=== PATIENT | male | born 1935 | race Caucasian/White ===

== ENCOUNTER 2023-04-23 21:03 | Inpatient (IN) | payer MEDICARE, OTHER ==
[~2023-04-23] VITALS: Ht 175.3 cm; Wt 70.9 kg
[~2023-04-23 21:03] MED LIST: NO HOME MEDS; tamsulosin capsule PO
[2023-04-23 22:24] LABS: HEMOGLOBIN 12.2 g/dl (14.0-17.9); MEAN PLATELET VOLUME 6.5 FL (7.4-10.4)
[2023-04-23 22:25] LABS: HEMATOCRIT 35.9 % (42.0-52.0); MEAN CORPUSCULAR HEMOGLOBIN 31.8 PG (27.0-31.0); MEAN CORPUSCULAR HGB CONC 33.8 g/dL (33.0-36.5); MEAN CORPUSCULAR VOLUME 93.9 FL (78-98); PLATELET COUNT 364 X10'3 (140-440); RED BLOOD COUNT 3.82 X10'6 (4.70-6.10); RED CELL DISTRIBUTION WIDTH 14.6 % (11.5-14.5); WHITE BLOOD COUNT 15.3 X10'3 (4.5-11.0)
[2023-04-23 22:31] LABS: ALANINE AMINOTRANSFERASE 27 U/L (12-78); ALBUMIN 2.6 G/DL (3.4-5.0); ALBUMIN/GLOBULIN RATIO 0.6 (1.1-1.5); ALKALINE PHOSPHATASE 168 IU/L (46-116); ANION GAP 8 (8-16); ASPARTATE AMINO TRANSFERASE 25 U/L (10-37); BILIRUBIN,TOTAL 1.1 MG/DL (0.1-1.0); BLOOD UREA NITROGEN 24 MG/DL (7-18); BUN/CREATININE RATIO 18.5 (10.0-20.0); CALCIUM 9.1 MG/DL (8.5-10.1); CHLORIDE 98 MMOL/L (99-107); GLUCOSE 101 MG/DL (70-104); POTASSIUM 3.8 MMOL/L (3.5-5.1); SODIUM 133 MMOL/L (135-145); TOTAL PROTEIN 6.7 G/DL (6.4-8.2); eCRCL 40 ML/MIN; eGFR 52 ML/MIN
[2023-04-23] MEDS ORDERED: normal saline 1000ml 1,000 ML IV ONE (23:05)
[2023-04-23 23:14] LABS: PLATELET ESTIMATE NORMAL; TOTAL CELLS COUNTED 100
[2023-04-23] MEDS ORDERED: CefTRIAXone/D5W-Rocephin 1gm 50 ML IV ONE (23:20)
[2023-04-23] MEDS ORDERED: iohexol 300mg/ml 100ml inj. ONE (23:23)
[2023-04-23 23:41] LABS: APTT 25 SECONDS (22-32); PROTHROMBIN TIME 11.1 SECONDS (9.0-12.0)
[2023-04-24] MEDS ORDERED: normal saline 1000ml 1,000 ML IV ONE (01:10)
[2023-04-24 01:55] LABS: BILIRUBIN,URINE NEGATIVE (Neg); CLARITY,URINE TURBID (Clear); COLOR,URINE YELLOW (Yellow); GLUCOSE, URINE NEGATIVE (Neg); KETONES,URINE NEGATIVE (Neg); LEUKOCYTE ESTERASE ,URINE LARGE (Neg); NITRITES, URINE POSITIVE (Neg); OCCULT BLOOD,URINE MODERATE (Neg); PROTEIN,URINE 30 mg/dl (Neg); UROBILINOGEN,URINE 0.2 E.U/dL (0.2-1.0)
[2023-04-24] MEDS: normal saline 1000ml 1,000 ML IV SCH ×2 (01:55→15:13)
[2023-04-24] MEDS ORDERED: potassium Cl 20 mEq SR tablet PO PRN ×2 (01:55)
[2023-04-24] MEDS ORDERED: potassium Cl 40MEQ/1/2NS 520ml 520 ML IV PRN (01:55)
[2023-04-24] MEDS ORDERED: magnesium Cl slow-release 64mg tablet PO PRN (01:55)
[2023-04-24] MEDS ORDERED: acetaminophen 325mg tablet PO PRN (01:55)
[2023-04-24] MEDS ORDERED: magnesium 4gm in 100ml NS 100 ML IV PRN (01:55)
[2023-04-24] MEDS ORDERED: ondansetron/PF 4mg/2ml inj IV PRN (01:55)
[2023-04-24] MEDS ORDERED: magnesium 2GM in 50ml NS 50 ML IV PRN (01:55)
[2023-04-24] MEDS: tamsulosin 0.4mg capsule PO SCH ×2 (02:00→21:07)
[2023-04-24 02:10] LABS: UA COLLECTION TYPE STRAIGHT CATH
[2023-04-24 02:15] LABS: BACTERIA,URINE 1+ /HPF (Neg); MUCUS STRANDS NONE SEEN /LPF (Neg); RBC,URINE 0-2 /HPF (0-2); SQUAMOUS EPITHELIAL CELL,UR NONE SEEN /LPF (FEW); WBC,URINE TNTC /HPF (0-4)
[2023-04-24] MEDS: CefTRIAXone 2gm/D5W 50ml BAG 50 ML IV SCH (08:50)
[2023-04-24] MEDS: heparin, porcine 5000 units/ml vial SQ SCH ×2 (08:55→21:07)
[2023-04-24] MEDS: acetaminophen 325mg tablet PO PRN ×2 (10:45→21:22)
[2023-04-24] MEDS ORDERED: FLO0.4C PO (11:08)
[2023-04-24] MEDS ORDERED: normal saline 500ml IV soln 500 ML IV ONE ×2 (13:15→13:45)
[2023-04-24 16:00] VITALS: BP 118/56; PULSE 78; RESP 19; TEMP 98; O2SAT 99
[2023-04-24 18:00] VITALS: BP 111/54; PULSE 70; RESP 16; TEMP 97.7; O2SAT 98
[2023-04-24 20:00] VITALS: RESP 15; O2SAT 96
[2023-04-24 22:00] VITALS: BP 98/54; PULSE 71; RESP 12; TEMP 97.7; O2SAT 98
[2023-04-25 02:22] VITALS: BP 124/65; PULSE 79; RESP 15; TEMP 98; O2SAT 96
[2023-04-25] MEDS: normal saline 1000ml 1,000 ML IV SCH ×2 (04:45→17:55)
[2023-04-25] MEDS: HYDROcodone/acetaminophen 5mg/325mg tablet PO PRN ×3 (05:57→20:46)
[2023-04-25 06:06] VITALS: BP 124/70; PULSE 71; RESP 14; TEMP 97.6; O2SAT 97
[2023-04-25 07:53] LABS: BASOPHILS # (AUTO) 0.1 X10'3 (0-0.2); BASOPHILS % (AUTO) 0.4 % (0-1); EOSINOPHILS # (AUTO) 0.2 X10'3 (0-0.9); EOSINOPHILS % (AUTO) 1.2 % (0-6); HEMATOCRIT 30.3 % (42.0-52.0); HEMOGLOBIN 10.1 g/dl (14.0-17.9); LYMPHOCYTES # (AUTO) 1.5 X10'3 (1.1-4.8); LYMPHOCYTES % (AUTO) 10.7 % (21-51); MEAN CORPUSCULAR HEMOGLOBIN 31.7 PG (27.0-31.0); MEAN CORPUSCULAR HGB CONC 33.2 g/dL (33.0-36.5); MEAN CORPUSCULAR VOLUME 95.5 FL (78-98); MONOCYTES # (AUTO) 0.8 X10'3 (0-0.9); MONOCYTES % (AUTO) 5.6 % (2-12); NEUTROPHILS # (AUTO) 11.8 X10'3 (1.8-7.7); NEUTROPHILS % (AUTO) 82.1 % (42-75); PLATELET COUNT 271 X10'3 (140-440); RED BLOOD COUNT 3.18 X10'6 (4.70-6.10); RED CELL DISTRIBUTION WIDTH 15.5 % (11.5-14.5); WHITE BLOOD COUNT 14.3 X10'3 (4.5-11.0)
[2023-04-25] MEDS: heparin, porcine 5000 units/ml vial SQ SCH ×2 (08:02→20:47)
[2023-04-25] MEDS: CefTRIAXone 2gm/D5W 50ml BAG 50 ML IV SCH (08:02)
[2023-04-25 08:22] LABS: ALANINE AMINOTRANSFERASE 29 U/L (12-78); ALBUMIN/GLOBULIN RATIO 0.6 (1.1-1.5); ALKALINE PHOSPHATASE 128 IU/L (46-116); ANION GAP 7 (8-16); ASPARTATE AMINO TRANSFERASE 29 U/L (10-37); BILIRUBIN,TOTAL 0.5 MG/DL (0.1-1.0); BLOOD UREA NITROGEN 18 MG/DL (7-18); BUN/CREATININE RATIO 17.3 (10.0-20.0); CALCIUM 8.3 MG/DL (8.5-10.1); CHLORIDE 104 MMOL/L (99-107); CREATININE 1.04 MG/DL (0.60-1.10); GLUCOSE 88 MG/DL (70-104); SODIUM 136 MMOL/L (135-145); TOTAL CARBON DIOXIDE 24.9 MMOL/L (24-32); TOTAL PROTEIN 5.6 G/DL (6.4-8.2); eCRCL 50 ML/MIN; eGFR 68 ML/MIN
[2023-04-25] MEDS ORDERED: vancomycin 1,750 MG in NS 350ml IV soln IV ONE (12:20)
[2023-04-25 18:00] VITALS: BP 111/57; PULSE 68; RESP 18; TEMP 98; O2SAT 98
[2023-04-25] MEDS: tamsulosin 0.4mg capsule PO SCH (20:45)
[2023-04-26] MEDS: HYDROcodone/acetaminophen 5mg/325mg tablet PO PRN ×3 (04:49→19:37)
[2023-04-26 06:15] VITALS: BP 132/67; PULSE 69; RESP 22; TEMP 97.7; O2SAT 97
[2023-04-26 07:56] LABS: BASOPHILS # (AUTO) 0.1 X10'3 (0-0.2); BASOPHILS % (AUTO) 0.7 % (0-1); EOSINOPHILS # (AUTO) 0.2 X10'3 (0-0.9); EOSINOPHILS % (AUTO) 2.1 % (0-6); HEMATOCRIT 32.4 % (42.0-52.0); HEMOGLOBIN 10.7 g/dl (14.0-17.9); LYMPHOCYTES % (AUTO) 18.4 % (21-51); MEAN CORPUSCULAR VOLUME 93.8 FL (78-98); MEAN PLATELET VOLUME 6.9 FL (7.4-10.4); MONOCYTES # (AUTO) 0.7 X10'3 (0-0.9); MONOCYTES % (AUTO) 6.7 % (2-12); NEUTROPHILS # (AUTO) 7.8 X10'3 (1.8-7.7); NEUTROPHILS % (AUTO) 72.1 % (42-75); PLATELET COUNT 279 X10'3 (140-440); RED BLOOD COUNT 3.45 X10'6 (4.70-6.10); RED CELL DISTRIBUTION WIDTH 15.2 % (11.5-14.5); WHITE BLOOD COUNT 10.8 X10'3 (4.5-11.0)
[2023-04-26 08:13] LABS: ALANINE AMINOTRANSFERASE 25 U/L (12-78); ALBUMIN/GLOBULIN RATIO 0.5 (1.1-1.5); ALKALINE PHOSPHATASE 124 IU/L (46-116); ANION GAP 9 (8-16); ASPARTATE AMINO TRANSFERASE 23 U/L (10-37); BILIRUBIN,TOTAL 0.4 MG/DL (0.1-1.0); BLOOD UREA NITROGEN 19 MG/DL (7-18); BUN/CREATININE RATIO 20.2 (10.0-20.0); CALCIUM 8.4 MG/DL (8.5-10.1); CHLORIDE 101 MMOL/L (99-107); CREATININE 0.94 MG/DL (0.60-1.10); GLUCOSE 88 MG/DL (70-104); POTASSIUM 3.9 MMOL/L (3.5-5.1); SODIUM 136 MMOL/L (135-145); TOTAL CARBON DIOXIDE 25.7 MMOL/L (24-32); TOTAL PROTEIN 5.8 G/DL (6.4-8.2); eCRCL 55 ML/MIN; eGFR 76 ML/MIN
[2023-04-26] MEDS: vancomycin/NS 1 GM ADD-VANTAGE 250 ML IV SCH ×2 (10:39→20:40)
[2023-04-26] MEDS: heparin, porcine 5000 units/ml vial SQ SCH ×2 (10:40→19:38)
[2023-04-26] MEDS: normal saline 1000ml 1,000 ML IV SCH (10:40)
[2023-04-26 11:15] VITALS: BP 112/66; PULSE 74; RESP 20; TEMP 97.8; O2SAT 96
[2023-04-26] MEDS: LACTOSE-REDUCED FOOD 237ML LIQUID PO SCH ×2 (13:00→18:00)
[2023-04-26] MEDS ORDERED: vancomycin/NS 1 GM ADD-VANTAGE 250 ML IV SCH (13:00)
[2023-04-26] MEDS: morphine 2 MG/ML inj. syringe IV PRN (14:04)
[2023-04-26 15:15] VITALS: BP 109/54; PULSE 73; RESP 16; TEMP 97.8; O2SAT 97
[2023-04-26 18:00] VITALS: BP 113/65; PULSE 64; RESP 18; TEMP 97.2; O2SAT 97
[2023-04-26] MEDS: lactose-reduced food (Ensure Enlive) - 237ml bottle PO SCH (18:00)
[2023-04-26] MEDS: tamsulosin 0.4mg capsule PO SCH (20:38)
[2023-04-26 22:00] VITALS: BP 126/68; PULSE 68; RESP 18; TEMP 97.8; O2SAT 96
[2023-04-27 02:00] VITALS: BP 129/75; PULSE 71; RESP 16; TEMP 98.5; O2SAT 97
[2023-04-27] MEDS: normal saline 1000ml 1,000 ML IV SCH ×2 (05:32→10:20)
[2023-04-27] MEDS: LACTOSE-REDUCED FOOD 237ML LIQUID PO SCH ×3 (07:41→18:00)
[2023-04-27] MEDS: lactose-reduced food (Ensure Enlive) - 237ml bottle PO SCH ×3 (07:55→18:00)
[2023-04-27] MEDS: heparin, porcine 5000 units/ml vial SQ SCH ×2 (07:55→20:15)
[2023-04-27] MEDS ORDERED: levoFLOXACIN-Levaquin 750MG/D5 150 ML IV SCH ×2 (08:00→13:38)
[2023-04-27 08:06] LABS: BASOPHILS # (AUTO) 0.1 X10'3 (0-0.2); BASOPHILS % (AUTO) 0.7 % (0-1); EOSINOPHILS # (AUTO) 0.2 X10'3 (0-0.9); EOSINOPHILS % (AUTO) 2.8 % (0-6); HEMATOCRIT 32.9 % (42.0-52.0); HEMOGLOBIN 11.2 g/dl (14.0-17.9); LYMPHOCYTES % (AUTO) 23.6 % (21-51); MEAN CORPUSCULAR HEMOGLOBIN 32.1 PG (27.0-31.0); MEAN CORPUSCULAR HGB CONC 34.1 g/dL (33.0-36.5); MEAN CORPUSCULAR VOLUME 94.1 FL (78-98); MEAN PLATELET VOLUME 6.5 FL (7.4-10.4); MONOCYTES # (AUTO) 0.5 X10'3 (0-0.9); MONOCYTES % (AUTO) 6.3 % (2-12); NEUTROPHILS # (AUTO) 5.7 X10'3 (1.8-7.7); NEUTROPHILS % (AUTO) 66.6 % (42-75); PLATELET COUNT 280 X10'3 (140-440); RED BLOOD COUNT 3.49 X10'6 (4.70-6.10); RED CELL DISTRIBUTION WIDTH 14.9 % (11.5-14.5); WHITE BLOOD COUNT 8.6 X10'3 (4.5-11.0)
[2023-04-27 08:31] LABS: ALANINE AMINOTRANSFERASE 23 U/L (12-78); ALBUMIN 2.1 G/DL (3.4-5.0); ALBUMIN/GLOBULIN RATIO 0.6 (1.1-1.5); ALKALINE PHOSPHATASE 121 IU/L (46-116); ANION GAP 8 (8-16); ASPARTATE AMINO TRANSFERASE 21 U/L (10-37); BILIRUBIN,TOTAL 0.5 MG/DL (0.1-1.0); BLOOD UREA NITROGEN 16 MG/DL (7-18); BUN/CREATININE RATIO 13.9 (10.0-20.0); CALCIUM 8.4 MG/DL (8.5-10.1); CHLORIDE 101 MMOL/L (99-107); CREATININE 1.15 MG/DL (0.60-1.10); GLUCOSE 82 MG/DL (70-104); POTASSIUM 4.2 MMOL/L (3.5-5.1); SODIUM 138 MMOL/L (135-145); TOTAL CARBON DIOXIDE 29.3 MMOL/L (24-32); TOTAL PROTEIN 5.9 G/DL (6.4-8.2); eCRCL 45 ML/MIN; eGFR 60 ML/MIN
[2023-04-27] MEDS: HYDROcodone/acetaminophen 5mg/325mg tablet PO PRN ×2 (10:18→20:15)
[2023-04-27] MEDS: vancomycin/NS 1 GM ADD-VANTAGE 250 ML IV SCH ×2 (11:21→20:22)
[2023-04-27] MEDS: docusate sod 100mg capsule PO SCH ×2 (13:05→20:23)
[2023-04-27] MEDS: morphine 2 MG/ML inj. syringe IV PRN (15:32)
[2023-04-27 18:00] VITALS: BP 127/69; PULSE 78; RESP 18; TEMP 98.1; O2SAT 95
[2023-04-27] MEDS: tamsulosin 0.4mg capsule PO SCH (20:23)
[2023-04-27] MEDS ORDERED: VANCOMYCIN LEVEL IV ONE (20:30)
[2023-04-27 22:00] VITALS: BP 120/67; PULSE 65; RESP 18; TEMP 98.9; O2SAT 96
[2023-04-28] VITALS (7 sets, daily range): BP systolic 98–133; BP diastolic 56–73; PULSE 65–91; RESP 17–27; TEMP 97.3–98.6; O2SAT 95–98
[2023-04-28] MEDS: normal saline 1000ml 1,000 ML IV SCH ×2 (00:30→12:35)
[2023-04-28 07:42] LABS: BASOPHILS # (AUTO) 0.1 X10'3 (0-0.2); BASOPHILS % (AUTO) 1.1 % (0-1); EOSINOPHILS # (AUTO) 0.3 X10'3 (0-0.9); EOSINOPHILS % (AUTO) 3.2 % (0-6); HEMATOCRIT 36.3 % (42.0-52.0); LYMPHOCYTES # (AUTO) 2.7 X10'3 (1.1-4.8); MEAN CORPUSCULAR HGB CONC 33.1 g/dL (33.0-36.5); MEAN CORPUSCULAR VOLUME 93.7 FL (78-98); MEAN PLATELET VOLUME 6.7 FL (7.4-10.4); MONOCYTES # (AUTO) 0.8 X10'3 (0-0.9); MONOCYTES % (AUTO) 8.1 % (2-12); NEUTROPHILS # (AUTO) 6.1 X10'3 (1.8-7.7); NEUTROPHILS % (AUTO) 60.6 % (42-75); PLATELET COUNT 306 X10'3 (140-440); RED BLOOD COUNT 3.87 X10'6 (4.70-6.10); RED CELL DISTRIBUTION WIDTH 15.2 % (11.5-14.5)
[2023-04-28] MEDS: heparin, porcine 5000 units/ml vial SQ SCH ×2 (07:50→20:38)
[2023-04-28] MEDS: HYDROcodone/acetaminophen 5mg/325mg tablet PO PRN ×2 (07:51→20:38)
[2023-04-28] MEDS: docusate sod 100mg capsule PO SCH ×2 (07:51→20:38)
[2023-04-28] MEDS: lactose-reduced food (Ensure Enlive) - 237ml bottle PO SCH ×3 (08:00→18:00)
[2023-04-28] MEDS: LACTOSE-REDUCED FOOD 237ML LIQUID PO SCH ×3 (08:00→18:00)
[2023-04-28 08:21] LABS: ALANINE AMINOTRANSFERASE 28 U/L (12-78); ALBUMIN 2.2 G/DL (3.4-5.0); ALBUMIN/GLOBULIN RATIO 0.6 (1.1-1.5); ALKALINE PHOSPHATASE 125 IU/L (46-116); ANION GAP 5 (8-16); ASPARTATE AMINO TRANSFERASE 23 U/L (10-37); BILIRUBIN,TOTAL 0.5 MG/DL (0.1-1.0); BLOOD UREA NITROGEN 17 MG/DL (7-18); BUN/CREATININE RATIO 15.9 (10.0-20.0); CALCIUM 8.8 MG/DL (8.5-10.1); CHLORIDE 101 MMOL/L (99-107); CREATININE 1.07 MG/DL (0.60-1.10); GLUCOSE 87 MG/DL (70-104); POTASSIUM 4.2 MMOL/L (3.5-5.1); SODIUM 135 MMOL/L (135-145); TOTAL CARBON DIOXIDE 28.6 MMOL/L (24-32); TOTAL PROTEIN 6.2 G/DL (6.4-8.2); eCRCL 49 ML/MIN; eGFR 65 ML/MIN
[2023-04-28] MEDS ORDERED: VANCOMYCIN LEVEL IV ONE ×2 (08:30→12:30)
[2023-04-28 12:17] LABS: PLATELET ESTIMATE NORMAL; POLYCHROMASIA FEW; SMUDGE CELLS FEW; STOMATOCYTES 1+; TOTAL CELLS COUNTED 100
[2023-04-28] MEDS: tamsulosin 0.4mg capsule PO SCH (20:39)
[2023-04-28] MEDS ORDERED: magnesium hydroxide 30ml (MOM) UD suspension PO PRN (21:00)
[2023-04-29] MEDS: normal saline 1000ml 1,000 ML IV SCH (01:55)
[2023-04-29 02:00] VITALS: BP 114/69; PULSE 75; RESP 18; TEMP 97.4; O2SAT 95
[2023-04-29 06:00] VITALS: BP 135/84; PULSE 90; RESP 20; TEMP 98.3; O2SAT 95
[2023-04-29 06:48] VITALS: PULSE 106
[2023-04-29 07:19] LABS: BASOPHILS # (AUTO) 0.2 X10'3 (0-0.2); BASOPHILS % (AUTO) 1.3 % (0-1); EOSINOPHILS # (AUTO) 0.3 X10'3 (0-0.9); EOSINOPHILS % (AUTO) 2.9 % (0-6); HEMATOCRIT 38.5 % (42.0-52.0); HEMOGLOBIN 12.9 g/dl (14.0-17.9); LYMPHOCYTES # (AUTO) 3.6 X10'3 (1.1-4.8); LYMPHOCYTES % (AUTO) 30.9 % (21-51); MEAN CORPUSCULAR HEMOGLOBIN 31.8 PG (27.0-31.0); MEAN CORPUSCULAR HGB CONC 33.6 g/dL (33.0-36.5); MEAN CORPUSCULAR VOLUME 94.7 FL (78-98); MEAN PLATELET VOLUME 7.2 FL (7.4-10.4); MONOCYTES # (AUTO) 0.8 X10'3 (0-0.9); MONOCYTES % (AUTO) 7.2 % (2-12); NEUTROPHILS # (AUTO) 6.6 X10'3 (1.8-7.7); NEUTROPHILS % (AUTO) 57.7 % (42-75); PLATELET COUNT 320 X10'3 (140-440); RED BLOOD COUNT 4.07 X10'6 (4.70-6.10); RED CELL DISTRIBUTION WIDTH 15.2 % (11.5-14.5); WHITE BLOOD COUNT 11.5 X10'3 (4.5-11.0)
[2023-04-29 07:47] LABS: ALANINE AMINOTRANSFERASE 42 U/L (12-78); ALBUMIN 2.5 G/DL (3.4-5.0); ALBUMIN/GLOBULIN RATIO 0.6 (1.1-1.5); ALKALINE PHOSPHATASE 141 IU/L (46-116); ANION GAP 6 (8-16); ASPARTATE AMINO TRANSFERASE 38 U/L (10-37); BILIRUBIN,TOTAL 0.7 MG/DL (0.1-1.0); BLOOD UREA NITROGEN 19 MG/DL (7-18); BUN/CREATININE RATIO 20.4 (10.0-20.0); CHLORIDE 98 MMOL/L (99-107); CREATININE 0.93 MG/DL (0.60-1.10); GLUCOSE 95 MG/DL (70-104); POTASSIUM 4.3 MMOL/L (3.5-5.1); SODIUM 132 MMOL/L (135-145); TOTAL CARBON DIOXIDE 27.7 MMOL/L (24-32); TOTAL PROTEIN 6.9 G/DL (6.4-8.2); eCRCL 56 ML/MIN; eGFR 77 ML/MIN
[2023-04-29] MEDS: LACTOSE-REDUCED FOOD 237ML LIQUID PO SCH (08:00)
[2023-04-29] MEDS: lactose-reduced food (Ensure Enlive) - 237ml bottle PO SCH (08:10)
[2023-04-29] MEDS: heparin, porcine 5000 units/ml vial SQ SCH (08:10)
[2023-04-29] MEDS: docusate sod 100mg capsule PO SCH (08:10)
[2023-04-29 10:09] LABS: TOTAL CELLS COUNTED 100
[2023-04-29 10:11] LABS: PLATELET ESTIMATE NORMAL
[2023-04-29 11:00] VITALS: BP 107/64; PULSE 96; RESP 22; TEMP 97.7; O2SAT 97
[2023-04-29] MEDS: HYDROcodone/acetaminophen 5mg/325mg tablet PO PRN (12:35)
== END 2023-04-29 12:58 | DRG 871 ==
LOC: ER 21:04 → ED HOLD 04-24 01:59 → PCU 3S 04-24 16:59
PROVIDERS: ADMIT Internal Medicine; ATTEND Internal Medicine
PROC: BW211ZZ Computerized Tomography (CT Scan) of Abdomen and Pelvis using Low Osmolar Contrast (ICD-10-PCS; principal; 2023-04-24)
DX: A41.52 Sepsis due to Pseudomonas (principal); E43 Unspecified severe protein-calorie malnutrition; G93.41 Metabolic encephalopathy; N17.0 Acute kidney failure with tubular necrosis; N39.0 Urinary tract infection, site not specified; R65.20 Severe sepsis without septic shock; N18.9 Chronic kidney disease, unspecified; R33.8 Other retention of urine; N40.1 Benign prostatic hyperplasia with lower urinary tract symptoms; K59.00 Constipation, unspecified; Z68.23 Body mass index [BMI] 23.0-23.9, adult
CPT/HCPCS: 36415; 71045; 74177; 80053; 80202; 81001; 83605; 84145; 84484; 85007; 85025; 85610; 85730; 87040; 87077; 87088; 87186; 93005; 93308; 97110; 97161; 97530; 99285; A4314; A6212; A6213; A6250; A6258; C1758; G0378; J0696; J1644; J1956; J2270; J3370; J3490; J7030; J7040; Q9967

== ENCOUNTER 2023-09-25 12:19 | Outpatient (CLI) | payer MEDICARE, OTHER ==
[~2023-09-25 12:19] MED LIST changes: +FLO0.4C PO; -NO HOME MEDS; -tamsulosin capsule PO
[2023-09-25 12:35] LABS: BILIRUBIN,URINE NEGATIVE (Neg); CLARITY,URINE TURBID (Clear); COLOR,URINE YELLOW (Yellow); GLUCOSE, URINE NEGATIVE (Neg); KETONES,URINE TRACE mg/dl (Neg); LEUKOCYTE ESTERASE ,URINE LARGE (Neg); NITRITES, URINE NEGATIVE (Neg); OCCULT BLOOD,URINE MODERATE (Neg); PROTEIN,URINE 30 mg/dl (Neg); UROBILINOGEN,URINE 0.2 E.U/dL (0.2-1.0)
[2023-09-25 12:36] LABS: UA COLLECTION TYPE NON-SPECIFIED
[2023-09-25 12:56] LABS: WBC,URINE TNTC /HPF (0-4)
[2023-09-25 12:57] LABS: WBC CLUMPS,URINE MANY /HPF (NEGATIVE)
[2023-09-25 12:58] LABS: BACTERIA,URINE 2+ /HPF (Neg); SQUAMOUS EPITHELIAL CELL,UR FEW /LPF (FEW)
== END 2023-09-25 23:59 | disposition home or self-care (01) ==
LOC: LAB 12:19
PROVIDERS: ATTEND Family Medicine
DX: N39.0 Urinary tract infection, site not specified (principal); R82.90 Unspecified abnormal findings in urine; R31.9 Hematuria, unspecified
CPT/HCPCS: 81001; 87077; 87088; 87186